=== PATIENT | female | born 1950 | race Caucasian/White ===

== ENCOUNTER 2017-05-20 10:46 | Inpatient (IN) ==
[2017-05-20 11:07] LABS: ABG Base Excess 2 mEq/L (-2 to 3); ABG HCO3 27 mEq/L (21-27); ABG Oxygen Saturation 96 % (95-98); ABG PCO2 40 mmHg (35-45); ABG PH 7.43 pH Units (7.32-7.45); ABG PO2 77 mmHg (85-104); ABG TCO2 28 mEq/L (20-26)
[2017-05-20 11:13] LABS: Basophils % 0.4 %; Hematocrit 27.1 % (35.3-44.9); Hemoglobin 8.5 g/dL (11.5-15.4); Immature Granulocytes % 0.7 % (0-4); Mean Corpuscular HGB Conc 31.4 g/dL (31.6-35.5); Mean Corpuscular Hemoglobin 24.7 pg (28.0-33.3); Mean Corpuscular Volume 78.8 fL (83.0-100.0); Monocytes % 15.2 %; Neutrophils # 4.7 K/mcL (1.6-8.9); Platelet Count 290 K/mcL (140-400); Red Blood Count 3.44 M/mcL (3.82-4.97); Segmented Neutrophils % 68.7 %
--- NOTE | 2017-05-20 11:38 | Emergency Department Note ---
Disposition Clinical Impression: Respiratory distress Disposition: Still a Patient Referrals: Grecia Glover FOOD ANALYST [Primary Care Provider] - General Adult HPI - General Chief complaint: ED Shortness of Breath/Dyspnea Stated complaint: resp distress Time Seen by Provider: 05/20/17 10:56 Source: patient, family, EMS Limitations: no limitations - History of Present Illness Pain Scale: 0 - Related Data Home Medications Medication Instructions Recorded Confirmed Aspirin 81 mg PO DAILY 10/01/14 10/01/14 Calcium 600 + D Tablet 600 mg PO BID 10/01/14 10/01/14 Duloxetine [Cymbalta] 60 mg PO DAILY 10/01/14 10/01/14 Levothyroxine [Synthroid] 112 mcg PO DAILY 10/01/14 10/01/14 Simvastatin [Zocor] 20 mg PO DAILY 10/01/14 10/01/14 Previous Rx's Medication Instructions Recorded Hydrocodone/Acetaminophen [[place] 1 tab PO Q6H PRN #7 tab NS 10/01/14 5-325 Tablet] Ibuprofen [Motrin] 800 mg PO Q8HR #30 tablet 10/01/14 Allergies Allergy/AdvReac Type Severity Reaction Status Date / Time docetaxel AdvReac Agitated Verified 11/30/15 13:46 Past Medical History - Past Medical History Medical history: Reports: cancer, hyperlipidemia, thyroid disease Surgical history: Reports: cholecystectomy, hysterectomy, thyroidectomy Psychiatric history: Reports: depression - Social History Smoking Status: Current every day smoker Smokeless Tobacco Status: No Alcohol use: Reports: none Drug use: Reports: none Physical Exam - General Limitations: no limitations General appearance: alert, anxious Course Vital Signs Temperature 98.1 F 05/20/17 10:47 Pulse Rate 116 05/20/17 10:47 Respiratory Rate 26 05/20/17 10:47 Blood Pressure 118/96 05/20/17 10:47 O2 Sat by Pulse Oximetry 89 05/20/17 10:47 Temperature 98.1 F 05/20/17 10:47 Pulse Rate 116 05/20/17 10:47 Respiratory Rate 23 05/20/17 10:50 Blood Pressure 118/96 05/20/17 10:47 O2 Sat by Pulse Oximetry 94 05/20/17 10:54 Oxygen Delivery Oxygen Delivery Bipap Medical Decision Making - Lab Data Result diagrams: 05/20/17 10:58 Lab Results 0405/20/17 05/20/17 Range/Units 10:58 10:58 11:02 WBC 6.8 (4.3-11.1) K/mcL RBC 3.44 L (3.82-4.97) M/mcL Hgb 8.5 L (11.5-15.4) g/dL Hct 27.1 L (35.3-44.9) % MCV 78.8 L (83.0-100.0) fL MCH 24.7 L (28.0-33.3) pg MCHC 31.4 L (31.6-35.5) g/dL RDW 17.0 H (11.5-14.5) % Plt Count 290 (140-400) K/mcL MPV 9.0 L (9.4-12.4) fL Immature Gran % 0.7 (0-4) % Seg Neutrophils % 68.7 % Lymphocytes % 15.0 % Monocytes % 15.2 % Eosinophils % 0.0 % Basophils % 0.4 % Neutrophils # 4.7 (1.6-8.9) K/mcL Lymphocytes # 1.0 (0.6-4.6) K/mcL Monocytes # 1.0 (0.0-1.3) K/mcL Eosinophils # 0.0 (0.0-0.6) K/mcL Basophils # 0.0 (0.0-0.2) K/mcL Sample Site R Radial ABG pH 7.43 (7.32-7.45) pH Units ABG pCO2 40 (35-45) mmHg ABG pO2 77 L (85-104) mmHg ABG HCO3 27 (21-27) mEq/L ABG Total CO2 28 H (20-26) mEq/L ABG O2 Saturation 96 (95-98) % ABG Base Excess 2 (-2 to 3) mEq/L Blas Test Positive O2 Delivery Device BiPAP Inspired O2 60.0 (1-15=lpm [id number]=%) Lactic Acid 0.8 (0.5-2.2) mmol/L Attestation Statement - Attestation Attestation: I examined this patient and my medical decision-making was reviewed with the Resident Physician. I agree with the documented findings, disposition and treatment plan as described except to the extent set forth below. 67 year old female in respirtaory distress and secondary to plueral effusion secondary to metastatic ovarian cancer. Patients MAULIK and katy at bedside states that she is going to be put on hospice tomorrow and her cancer care is at [facility]. Currently she is a full code. We will consult withou to hospice and then discuss plan of care with family. Emi will continue with cardiopulmonary workup
[2017-05-20 11:41] LABS: BUN/Creatinine Ratio 15 (6-26); Blood Urea Nitrogen 14 mg/dL (8-23); Calcium 8.8 mg/dL (8.6-10.3); Carbon Dioxide 26 mEq/L (23-29); Chloride 99 mEq/L (98-107); Glucose 135 mg/dL (70-105); Osmolality,Calculated 279 (280-300); Potassium 3.6 mEq/L (3.5-5.1); Sodium 133 mEq/L (136-145); Troponin I < 0.03 ng/mL (< 0.04); eGFR For African Americans > 60 (> 60); eGFR For Non-African Americans > 60 (> 60)
--- NOTE | 2017-05-20 12:35 | Emergency Department Note ---
Disposition Clinical Impression: Respiratory distress Pulmonary edema Qualifiers: Chronicity: chronic Qualified Code(s): J81.1 - Chronic pulmonary edema Primary cancer of ovary with widespread metastatic disease Qualifiers: Laterality: unspecified laterality Qualified Code(s): C56.9 - Malignant neoplasm of unspecified ovary; C80.0 - Disseminated malignant neoplasm, unspecified; C80.0 - Disseminated malignant neoplasm, unspecified; C80.0 - Disseminated malignant neoplasm, unspecified; C80.0 - Disseminated malignant neoplasm, unspecified Acute and chronic respiratory failure Qualifiers: Respiratory failure complication: unspecified whether with hypoxia or hypercapnia Qualified Code(s): J96.20 - Acute and chronic respiratory failure, unspecified whether with hypoxia or hypercapnia Disposition: Admitted As Inpatient Condition: Fair Referrals: Grecia Glover CNP [Primary Care Provider] - Forms: ED Satisfaction Letter Time of Disposition: 12:41 SOB HPI - General Chief Complaint: ED Shortness of Breath/Dyspnea Stated Complaint: resp distress Time Seen by Provider: 05/20/17 10:56 Source: patient, family, EMS Limitations: other (dyspneic) Nursing Notes Reviewed: Yes Vital Signs Reviewed: Yes - History of Present Illness Patient is a 67-year-old female who presents to [facility] ED with a chief complaint of difficulty breathing. Patient has a past medical history of metastatic ovarian cancer. Family states it has spread from her ovaries to her lungs and liver and peritoneal lining. Patient was previously being treated at the [facility]. Patient's last appointment was last in which they were told that any further efforts for treatment would be futile. They had referred her to hospitalist for which she was supposed to see them for the first time tomorrow. Her sister states that over the weekend, she has started to decline more and more. Her oxygen was 77% on 6 L when EMS arrived. When she arrived here, she was placed on BiPAP to help decrease her work of respirations. Patient is currently adamant to be DNI. However, her most recent CODE STATUS is full code. When the arrived, I discussed with him if they would like any further aggressive measures and he says no. Does not want any chest compressions or any further surgical interventions. At this time, her CODE STATUS is DNR CC. 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 Severity: moderate Consistency/Duration: gradually worsening Improves with: nothing Worsens with: nothing Treatment prior to arrival: oxygen - Related Data Home oxygen amount: 2 liters Home Medications Medication Instructions Recorded Confirmed Aspirin 81 mg PO DAILY 10/01/14 05/20/17 Duloxetine [Cymbalta] 60 mg PO DAILY 10/01/14 05/20/17 Simvastatin [Zocor] 20 mg PO DAILY 10/01/14 05/20/17 LORazepam [Ativan] 1 mg PO TID 05/20/17 05/20/17 Levothyroxine [Synthroid] 88 mcg PO DAILY 05/20/17 05/20/17 Multivitamin/Iron/Folic Acid 1 tab PO DAILY 05/20/17 05/20/17 [Cerovite Advanced Form Tab] Oxycodone HCl [Oxaydo] 5 mg PO Q6H PRN 05/20/17 05/20/17 Sulfamethoxazole/Trimeth DS 1 tab PO BID 05/20/17 05/20/17 [Bactrim DS] Allergies Allergy/AdvReac Type Severity Reaction Status Date / Time docetaxel AdvReac Agitated Verified 11/30/15 13:46 Limitations: ROS unobtainable due to patients medical condition Past Medical History - Past Medical History Attestation: Yes The following information was validated with the patient. Source: patient Medical history: Reports: cancer, hyperlipidemia, thyroid disease Surgical history: Reports: cholecystectomy, hysterectomy, thyroidectomy Psychiatric history: Reports: depression - Social History Smoking Status: Current every day smoker Smokeless Tobacco Status: No Alcohol use: Reports: none Drug use: Reports: none Physical Exam - General Limitations: no limitations General appearance: alert, anxious - Head Head exam: atraumatic, normocephalic, normal inspection - Eye Eye exam: Present: normal appearance, PERRL, EOMI - ENT ENT exam: normal exam, normal oropharynx, mucous membranes moist - Neck Neck exam: Present: normal inspection, full ROM, trachea midline - Chest Chest inspection: Present: normal inspection, symmetric chest wall rise - Respiratory Respiratory exam: Present: normal lung sounds bilaterally - Cardiovascular Cardiovascular exam: Present: normal rhythm, tachycardia - Abdominal Exam Abdominal exam: Present: soft, Non-Tender. Absent: tenderness, distention, guarding, rebound, rigidity - Extremities Exam Extremities exam: Present: normal inspection, full ROM. Absent: tenderness, pedal edema - Neurological Exam Neurological exam: Present: alert - Psychiatric Psychiatric exam: Present: normal affect, normal mood - Skin Skin exam: Present: warm, dry, intact, normal color Course Course Narrative: Patient seen and examined. Difficulty breathing with oxygen saturation 77%. Patient placed on BiPAP upon her arrival. Her oxygenation improved to 92% with good waveform. Lab work, EKG, chest x-ray ordered. We are waiting on the husbands arrival to make a decision on her CODE STATUS. - Reevaluation(s) Reevaluation #1: I discussed the patient with hospice care who stated they are unable to do any set up for home hospice due to it being Sunday. They are limited on the resources today. I discussed with palliative care nurse Leona who states they will consult on the patient to determine goals of care. Patient will be admitted to hospitalist service. I discussed with hospitalist Dr. Neff who states he would like to know normal official CODE STATUS before we can accept the patient. I discussed with the family members and the who has arrived to states that he would like no further life-saving invasive interventions. Decision to change her to a DNR CC. Time: 12:43 Vital Signs Temperature 98.1 F 05/20/17 10:47 Pulse Rate 116 05/20/17 10:47 Respiratory Rate 26 05/20/17 10:47 Blood Pressure 118/96 05/20/17 10:47 O2 Sat by Pulse Oximetry 89 05/20/17 10:47 Temperature 98.1 F 05/20/17 10:47 Pulse Rate 94 05/20/17 12:20 Respiratory Rate 20 05/20/17 12:20 Blood Pressure 108/71 05/20/17 12:20 O2 Sat by Pulse Oximetry 95 05/20/17 12:20 Oxygen Delivery Oxygen Delivery Bipap Shortness of Breath/Dyspnea - Medical Records Medical records reviewed: Yes I reviewed the patient's medical records. - Lab Data Lab results reviewed: Yes I reviewed the patient's lab results. Result diagrams: 05/20/17 10:58 05/20/17 10:58 Lab Results 05/20/17 05/20/17 05/20/17 Range/Units 10:58 10:58 10:58 WBC 6.8 (4.3-11.1) K/mcL RBC 3.44 L (3.82-4.97) M/mcL Hgb 8.5 L (11.5-15.4) g/dL Hct 27.1 L (35.3-44.9) % MCV 78.8 L (83.0-100.0) fL MCH 24.7 L (28.0-33.3) pg MCHC 31.4 L (31.6-35.5) g/dL RDW 17.0 H (11.5-14.5) % Plt Count 290 (140-400) K/mcL MPV 9.0 L (9.4-12.4) fL Immature Gran % 0.7 (0-4) % Seg Neutrophils % 68.7 % Lymphocytes % 15.0 % Monocytes % 15.2 % Eosinophils % 0.0 % Basophils % 0.4 % Neutrophils # 4.7 (1.6-8.9) K/mcL Lymphocytes # 1.0 (0.6-4.6) K/mcL Monocytes # 1.0 (0.0-1.3) K/mcL Eosinophils # 0.0 (0.0-0.6) K/mcL Basophils # 0.0 (0.0-0.2) K/mcL Sample Site ABG pH (7.32-7.45) pH Units ABG pCO2 (35-45) mmHg ABG pO2 (85-104) mmHg ABG HCO3 (21-27) mEq/L ABG Total CO2 (20-26) mEq/L ABG O2 Saturation (95-98) % ABG Base Excess (-2 to 3) mEq/L Blas Test O2 Delivery Device Inspired O2 (1-15=lpm [id number]=%) Sodium 133 L (136-145) mEq/L Potassium 3.6 (3.5-5.1) mEq/L Chloride 99 (98-107) mEq/L Carbon Dioxide 26 (23-29) mEq/L BUN 14 (8-23) mg/dL Creatinine 0.91 (0.60-1.20) mg/dL Est GFR ( Amer) > 60 (> 60) Est GFR (Non-Af Amer) > 60 (> 60) BUN/Creatinine Ratio 15 (6-26) Glucose 135 H (70-105) mg/dL Calculated Osmolality 279 L (280-300) Lactic Acid 0.8 (0.5-2.2) mmol/L Calcium 8.8 (8.6-10.3) mg/dL Troponin I < 0.03 (< 0.04) ng/mL B-Natriuretic Peptide (Less than 100) pg/mL 05/20/17 05/20/17 Range/Units 10:58 11:02 WBC (4.3-11.1) K/mcL RBC (3.82-4.97) M/mcL Hgb (11.5-15.4) g/dL Hct (35.3-44.9) % MCV (83.0-100.0) fL MCH (28.0-33.3) pg MCHC (31.6-35.5) g/dL RDW (11.5-14.5) % Plt Count (140-400) K/mcL MPV (9.4-12.4) fL Immature Gran % (0-4) % Seg Neutrophils % % Lymphocytes % % Monocytes % % Eosinophils % % Basophils % % Neutrophils # (1.6-8.9) K/mcL Lymphocytes # (0.6-4.6) K/mcL Monocytes # (0.0-1.3) K/mcL Eosinophils # (0.0-0.6) K/mcL Basophils # (0.0-0.2) K/mcL Sample Site R Radial ABG pH 7.43 (7.32-7.45) pH Units ABG pCO2 40 (35-45) mmHg ABG pO2 77 L (85-104) mmHg ABG HCO3 27 (21-27) mEq/L ABG Total CO2 28 H (20-26) mEq/L ABG O2 Saturation 96 (95-98) % ABG Base Excess 2 (-2 to 3) mEq/L Blas Test Positive O2 Delivery Device BiPAP Inspired O2 60.0 (1-15=lpm [id number]=%) Sodium (136-145) mEq/L Potassium (3.5-5.1) mEq/L Chloride (98-107) mEq/L Carbon Dioxide (23-29) mEq/L BUN (8-23) mg/dL Creatinine (0.60-1.20) mg/dL Est GFR ( Amer) (> 60) Est GFR (Non-Af Amer) (> 60) BUN/Creatinine Ratio (6-26) Glucose (70-105) mg/dL Calculated Osmolality (280-300) Lactic Acid (0.5-2.2) mmol/L Calcium (8.6-10.3) mg/dL Troponin I (< 0.04) ng/mL B-Natriuretic Peptide 47 (Less than 100) pg/mL - Radiology Data Radiology results reviewed: Yes I reviewed the patient's radiology results. Chest X-Ray 05/20/17 10:56 IMPRESSION: Pulmonary edema with bilateral pleural effusions. D/ / 05/20/2017 11:30:41 Mendez Kumar MD / [facility] Interpreting Provider: Mendez Kumar MD - EKG Data EKG attestation: Yes I reviewed and interpreted this EKG. EKG results narrative: EKG done at 1048 shows sinus tachycardia with a rate of [address] elevation or depression noted. Normal axis. Low voltage throughout. Wandering baseline, poor quality EKG.
[2017-05-20] MEDS ORDERED: MORPHINE SUL Oral CONC 10 MG/0.5 ML ORAL.SYG SL PRN (13:21)
[2017-05-20] MEDS ORDERED: Haloperidol Oral Conc 10 MG/5 ML UDC PO PRN (13:22)
[2017-05-20] MEDS ORDERED: Ondansetron ODT 4 MG TAB.RAPDIS SL PRN (13:25)
--- NOTE | 2017-05-20 13:28 | Palliative - Consult Note ---
Date of Encounter: 05/20/17 Time of Encounter: 13:30 - Assessment and Plan (1) Constipation Current Visit: Yes Status: Acute Assessment and plan: Dulcolax suppository daily and milk and molasses enema tonight if not effective. Add Senokot if able to take po. Monitor. Qualifiers: Qualified Code(s): K59.00 - Constipation, unspecified (2) Cancer associated pain Current Visit: Yes Status: Acute Assessment and plan: Continue Oxycodone as taken at home. Roxanol has been added for dyspnea-may assist with pain as well. Monitor. She was only utilizing about 15mg Oxycodone per day, but may need addition of Fentanyl patch and liquid for breakthrough if unable to take po. (3) Dyspnea Current Visit: Yes Status: Acute Assessment and plan: Add Roxanol for dyspnea, continue oxygen, and BIPAP PRN. FAmily to consider if they want to continue the bipap. Qualifiers: Dyspnea type: unspecified Qualified Code(s): R06.00 - Dyspnea, unspecified (4) Primary cancer of ovary with widespread metastatic disease Current Visit: Yes Status: Acute Qualifiers: Laterality: unspecified laterality Qualified Code(s): C56.9 - Malignant neoplasm of unspecified ovary; C80.0 - Disseminated malignant neoplasm, unspecified; C80.0 - Disseminated malignant neoplasm, unspecified; C80.0 - Disseminated malignant neoplasm, unspecified; C80.0 - Disseminated malignant neoplasm, unspecified (5) Acute and chronic respiratory failure Current Visit: Yes Status: Acute Qualifiers: Respiratory failure complication: unspecified whether with hypoxia or hypercapnia Qualified Code(s): J96.20 - Acute and chronic respiratory failure , unspecified whether with hypoxia or hypercapnia Palliative-CN HPI - Data of Consult Consult date: 05/20/17 Requesting Physician: Jovani Avila Primary Care Provider: Grecia Glover CNP - Consult Narrative History of present illness: Ms. Coleman is a 67 year old female with a history of metastatic ovarian cancer diagnosed 5 years ago, who presented with increasing shortness of breath that occurred over the last 24 hours. Patient's daughter at bedside states pt was seen at the [facility], [place] and had thoracentesis last Tues - drained 900ml. Patient had discussed at that time discontinuing chemotherapy as it appeared disease was progression and she was not tolerating most recent treatments. [facility] discussed that she also had large pleural effusion on the right , however, decided to do no further drainage, and treat shortness of breath with medications. Referral had been made to [facility], and they were to visit pt home on Sunday to discuss enrollment. When pt became distressed, they felt they had no choice this weekend other than to call squad. Patient lives with and daughter Richard and granddaughters live next door. She had never completed advanced directives, but in ED was able to make her wishes known that she wanted to be kept comfortable at this point, and did not want any resuscitated measures. Upon my visit in the ED, pt is resting quietly on bipap with daughter and granddaughters at the bedside. has went to eat. Patient lethargic and did not arouse much for me - does become restless with assessment, but would not open eyes or attempt to answer questions. Appeared in no current distress. Vitals stable and oxygen saturation currently 95%. Daughter states that patient has had good last 2 days at home and was eating well, however, went downhill quickly. States she also has not had a BM in 2 weeks. She was utilizing 2-3 Oxycodone/day at home for abd pain. CC: Jovani Avila Past Med Surg Social Fam HX - Past Medical History Medical history: cancer, hyperlipidemia, thyroid disease Psychiatric history: depression - Past Surgical History Surgical History: cholecystectomy, hysterectomy, thyroidectomy - Social History Smoking Status: Current every day smoker Smokeless Tobacco Status: No Alcohol use: none Drug use: none Medications and Allergies Aspirin 81 mg PO DAILY 10/01/14 [History] Duloxetine [Cymbalta] 60 mg PO DAILY 10/01/14 [History] Simvastatin [Zocor] 20 mg PO DAILY 10/01/14 [History] Calcium Carb/Vitamin D3/Vit K1 [Calcium + D Soft Chewable Tab] 1 tab PO DAILY [History] LORazepam [Ativan] 1 mg PO TID 05/20/17 [History] Levothyroxine [Synthroid] 88 mcg PO DAILY 05/20/17 [History] Multivitamin/Iron/Folic Acid [Cerovite Advanced Form Tab] 1 tab PO DAILY [History] Oxycodone HCl [Oxaydo] 5 mg PO Q6H PRN 05/20/17 [History] Sulfamethoxazole/Trimeth DS [Bactrim DS] 1 tab PO BID 05/20/17 [History] 3 Allergy/AdvReac Type Severity Reaction Status Date / Time docetaxel AdvReac Agitated Verified 11/30/15 13:46 ROS unobtainable: due to mental status Palliative Care-Exam - Constitutional Vitals: Temp Pulse Resp BP Pulse Ox 98.1 F 94 20 111/56 95 05/20/17 10:47 05/20/17 12:20 05/20/17 13:18 05/20/17 13:18 05/20/17 12:20 General appearance: Present: no acute distress - Head Head Exam: Present: normal inspection, normocephalic - Eye Eye exam: Present: normal appearance, PERRL - Respiratory Respiratory exam: Present: decreased breath sounds, CTAB Additional comments: Currently on bipap - Cardiovascular Cardiovascular exam: Present: +S1, +S2 - GI/Abdominal Exam GI/Abdominal exam: Present: distended, normal bowel sounds, soft - Extremities Exam Extremities exam: Present: normal capillary refill, normal inspection - Neurological Exam Additional comments: Lethargic after receiving sedative. Restless when awakened. Does not follow commands, but moves all extremities - Skin Skin exam: Present: dry, pallor, warm Internal Medicine - CN: Reslt - Labs CBC & Chem 7: 05/20/17 10:58 05/20/17 10:58 - ABG Interpretation ABG results: ABG ABG pH 7.43 pH Units (7.32-7.45) 05/20/17 11:02 ABG pCO2 40 mmHg (35-45) 05/20/17 11:02 ABG pO2 77 mmHg (85-104) L 05/20/17 11:02 ABG O2 Saturation 96 % (95-98) 05/20/17 11:02 Consult Discharge Plan - Plan Referrals: Grecia Glover CNP [Primary Care Provider] - Palliative Quality Palliative Quality: Screen for Code Status: Yes, Screen for Goals of Care: Yes, Screen for Pain: Yes, If Pain Regimen Started, Initiate Bowel Regimen: Yes, Screen for Nausea/Vomitting: Yes Code Status: 05/20/17 13:24 DNR [Resuscitation Status: Active] [RES] Routine Comment: Resuscitation Status: DNR-Comfort Care
[2017-05-20] MEDS ORDERED: NON-FORMULARY MEDICATION 1 EACH EACH (Oxycodone Hcl [Oxaydo] 5 MG) PO PRN (13:50)
[2017-05-20] MEDS ORDERED: Naloxone 0.4 MG/ML INJ IVP PRN (13:51)
--- NOTE | 2017-05-20 14:19 | Internal Med History&Physical ---
Date of Encounter: 05/20/17 Time of Encounter: 14:04 Internal Medicine - H&P: HPI Chief complaint: shortness of breath Admitted From: Emergency Dept Plans for Post Hospital Care: Hospice - Medical Facility History of present illness: Ms. 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 Patient was brought to this hospital emergency department for worsening shortness of breath. 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 Patient was following up at [facility] in [facility]. Patient underwent multiple rounds of thoracentesis. The last week patient was evaluated on at the [facility] and at that time patient/family members were told that it is extremely difficult for now to do this serial thoracentesis. Specialist from the [facility] recommended hospice evaluation. Hospice agency was called and they were supposed to evaluate patient on 05/21/2017 and enroll her for hospice. This morning patient was in a persistent shortness of breath and was gradually declining. Patient was unable to talk. This was the reason squad was called. Upon arrival of the squad it was noted that her oxygen saturation was 77%. Workup in the emergency room: Patient was evaluated in the emergency room. Patient was placed on BiPAP. Basic labs were drawn. Palliative care was called from emergency room for further evaluation. Reason for admission: Acute on chronic respiratory failure likely secondary to the worsening pleural effusion. The etiology of recurrent pleural effusion is underlying carcinoma of ovary. Past Med Surg Social Fam HX - Past Medical History Medical history: cancer, hyperlipidemia, thyroid disease Psychiatric history: depression - Past Surgical History Surgical History: cholecystectomy, hysterectomy, thyroidectomy - Social History Smoking Status: Current every day smoker Smokeless Tobacco Status: No Alcohol use: none Drug use: none Internal Medicine - H&P: Meds Aspirin 81 mg PO DAILY 10/01/14 [History] Duloxetine [Cymbalta] 60 mg PO DAILY 10/01/14 [History] Simvastatin [Zocor] 20 mg PO DAILY 10/01/14 [History] Calcium Carb/Vitamin D3/Vit K1 [Calcium + D Soft Chewable Tab] 1 tab PO DAILY [History] LORazepam [Ativan] 1 mg PO TID 05/20/17 [History] Levothyroxine [Synthroid] 88 mcg PO DAILY 05/20/17 [History] Multivitamin/Iron/Folic Acid [Cerovite Advanced Form Tab] 1 tab PO DAILY [History] Oxycodone HCl [Oxaydo] 5 mg PO Q6H PRN 05/20/17 [History] Sulfamethoxazole/Trimeth DS [Bactrim DS] 1 tab PO BID 05/20/17 [History] 3 Allergy/AdvReac Type Severity Reaction Status Date / Time docetaxel AdvReac Agitated Verified 11/30/15 13:46 ROS unobtainable: due to mental status All Systems PM: A 10-system review of systems was performed and is negative for pertinent findings except as documented above in the HPI. - Constitutional Vitals: Temp Pulse Resp BP Pulse Ox 97.8 F 100 17 115/81 95 05/20/17 13:39 05/20/17 13:39 05/20/17 13:39 05/20/17 13:39 05/20/17 12:20 General appearance: Present: cachectic, A&O X 2, mild distress, underweight - Head Head exam: Present: atraumatic, normocephalic - Eye Eye exam: Present: PERRL, conjuntiva pink, sclera anicteric Pupils: Present: PERRL - Neck Neck exam general surgery: Present: supple, trachea midline. Absent: lymphadenopathy - Respiratory Respiratory exam: Present: CTAB. Absent: accessory muscle use, rales, rhonchi, wheezes - Cardiovascular Cardiovascular exam: Present: RRR, +S1, +S2. Absent: diastolic murmur, gallop, rubs, systolic murmur - GI/Abdominal GI/Abdominal exam: Present: normal bowel sounds, soft, no peritoneal signs. Absent: distended, tenderness - Extremities Exam Extremities exam: Present: warm, radial pulses palpable and symmetrical. Absent : calf tenderness, cyanotic, pedal edema - Neurological Exam Neurological exam: Present: CN II-XII intact, oriented X3, no focal deficits. Absent: pronater drift, facial droop, speech deficit - Skin Skin exam: Present: dry, intact Internal Med - H&P Results - Labs CBC & Chem 7: 05/20/17 10:58 05/20/17 10:58 - Assessment and plan (1) Acute and chronic respiratory failure Current Visit: Yes Status: Acute Assessment and plan: Patient has a recurrent pleural effusion secondary to the underlying widespread metastatic ovarian cancer. Patient use to undergo for this recurrent thoracentesis is at [facility]. Last patient was told to follow up with the hospice by cancer specialist at [facility]. Hospice is supposed to see patient tomorrow morning that is on 05/21/2017. This morning patient's condition probably separate deteriorated and she was short of breath. This was the reason patient was brought to the emergency room for further evaluation. Plan: Admit as inpatient. Continue BiPAP. Pain management as per palliative care/hospice. Patient's CODE STATUS is DNR comfort care. We will make patient comfortable. Palliative care had a long discussion with the patient/family. I have seen this patient along with the palliative care nurse practitioner in the room 21 and emergency Department. Plan of care discussed with the patient's family. All questions answered. Qualifiers: Respiratory failure complication: unspecified whether with hypoxia or hypercapnia Qualified Code(s): J96.20 - Acute and chronic respiratory failure , unspecified whether with hypoxia or hypercapnia (2) Primary cancer of ovary with widespread metastatic disease Current Visit: Yes Status: Acute Assessment and plan: Patient does have a metastatic widespread ovarian cancer. This was diagnosed 5 years back. At this point, has been recommended hospice evaluation/hospice treatment by patient's cancer specialist from [facility] [place], [place]. We have palliative care/hospice on the board. We will follow the recommendations. Qualifiers: Laterality: unspecified laterality Qualified Code(s): C56.9 - Malignant neoplasm of unspecified ovary; C80.0 - Disseminated malignant neoplasm, unspecified; C80.0 - Disseminated malignant neoplasm, unspecified; C80.0 - Disseminated malignant neoplasm, unspecified; C80.0 - Disseminated malignant neoplasm, unspecified (3) Cancer associated pain Current Visit: Yes Status: Acute Assessment and plan: Patient definitely has a concern associated pain. At this point we will continue to follow the recommendations from palliative care/hospice team. Close monitoring of the patient as far as pain is concerned. (4) Constipation Current Visit: Yes Status: Acute Assessment and plan: Possibility of a constipation etiology is likely opioid induced. Patient is on appropriate medication at this point. We will continue to monitor patient. Qualifiers: Constipation type: unspecified constipation type Qualified Code(s): K59.00 - Constipation, unspecified (5) DVT prophylaxis Current Visit: Yes Status: Acute Assessment and plan: SCD Medical decision making: This patient has a grave prognosis in spite of being on appropriate care due to the underlying terminal metastatic cancer. - Time Spent With Patient Total time spent is greater than 50% in coordination of care (as documented) at patient's floor/unit and/or counseling patient:
[2017-05-20] MEDS: *HR* Heparin 5,000 UNIT/ML VIAL SQ SCH ×2 (15:54→23:35)
[2017-05-20] MEDS: Bisacodyl 10 MG RECTAL SUPPOSITORY RC SCH (15:54)
[2017-05-20] MEDS ORDERED: Milk and Molasses Enema 200 ML RC ONE (20:00)
[2017-05-20] MEDS: *HR* OxyCODONE Immed Rel 5 MG TABLET PO PRN (22:01)
[2017-05-20] MEDS: Sennosides/Docusate Sodium TABLET PO SCH (22:01)
[2017-05-21] MEDS ORDERED: VITAMIN D3 PO SCH (09:00)
[2017-05-21] MEDS ORDERED: Cholecalciferol (D-3) 1,000 UNIT TABLET PO SCH (09:00)
[2017-05-21] MEDS ORDERED: CALCIUM CARB PO SCH (09:00)
[2017-05-21] MEDS ORDERED: VIT K1 PO SCH (09:00)
[2017-05-21] MEDS ORDERED: Aspirin 81 MG TAB.CHEW PO SCH (09:00)
[2017-05-21] MEDS: Sennosides/Docusate Sodium TABLET PO SCH (09:57)
[2017-05-21] MEDS: *HR* Heparin 5,000 UNIT/ML VIAL SQ SCH ×2 (09:57→16:20)
--- NOTE | 2017-05-21 10:23 | Palliative Progress Note ---
Date of Encounter: 05/21/17 Time of Encounter: 09:00 - Assessment and plan (1) Nausea & vomiting Current Visit: Yes Status: Acute Assessment and plan: Patient reports had 1 episode of vomitting this am. Zofran improved, had 1 dose in last 24 hours. Ordered Zofran ODT for patient's discharge. (2) Restlessness and agitation Current Visit: Yes Status: Acute Assessment and plan: Patient reports agitation/restlessness improved. Zero doses of Haldol in last 24 hours. Ordered Haldol for discharge PRN. (3) Goals of care, counseling/discussion Current Visit: Yes Status: Acute Assessment and plan: Family at bedside during assessment, agree patient wishes to go home with [facility]. After completing assessment, spoke with attending Dr. Che regarding discharge planning. Dr. Che reports patient admitted for palliative type symptom management and since her symptoms are from a terminal illness that she will never be medically cleared; however, feels she is ok to be discharged home with hospice, since that is the patient's wishes. Reported to patient's family and patient that [facility] has been notified of her pending discharge. Requested hospital bed, air mattress, oxygen, over the bed table, and bedside commode. Spoke with Dinorah at [facility] for patient to be admitted while in hospital and be transported home via ambulance for additional comfort. Ordered prescriptions (Dulcolax, Morphine Sulfate, Zofran, Roxicodone, Senna Plus, and Haldol) and faxed to pharmacy. Will call [facility] once discharge order is placed by Dr. Che. (4) Respiratory distress Current Visit: Yes Status: Acute Assessment and plan: Patient breathing not labored during time of assessment. Denies dyspnea. Ordered Morphine Sulfate for discharge. Also reported to [facility] patient is currently using 13L NC. (5) Primary cancer of ovary with widespread metastatic disease Current Visit: Yes Status: Acute Qualifiers: Laterality: unspecified laterality Qualified Code(s): C56.9 - Malignant neoplasm of unspecified ovary; C80.0 - Disseminated malignant neoplasm, unspecified; C80.0 - Disseminated malignant neoplasm, unspecified; C80.0 - Disseminated malignant neoplasm, unspecified; C80.0 - Disseminated malignant neoplasm, unspecified (6) Dyspnea Current Visit: Yes Status: Acute Qualifiers: Dyspnea type: unspecified Qualified Code(s): R06.00 - Dyspnea, unspecified (7) Cancer associated pain Current Visit: Yes Status: Acute Assessment and plan: Patient reports pain under control at time of assessment. Ordered Morphine Sulfate and Roxicodone for discharge. (8) Constipation Current Visit: Yes Status: Acute Assessment and plan: Patient reports has had 1 bowel movement. Continued Senna Plus and Dulcolax for discharge. Qualifiers: Constipation type: unspecified constipation type Qualified Code(s): K59.00 - Constipation, unspecified - Time Spent With Patient Total time spent is greater than 50% in coordination of care (as documented) at patient's floor/unit and/or counseling patient: - Subjective Interval history: Upon arrival to room, patient resting quietly with eyes closed. Patient's 3 family members at bedside. Patient easily awakes with verbal stimulation. Reports pain to be under control with pain being rated as a dull 3/10; reports pain medication is helping control pain at this time. Patient has taken 1 dose of Roxicodone and 1 dose of Roxanol in last 24 hours. Questioned about dyspnea , reports much improved and not an issue at this time; patient on 13L via NC. Educated patient that Roxanol can also be utilized to help with dyspnea. Denies nausea at this time; however, reports did have vomitting episode this am; Zofran times 1 dose in last 24 hours, has helped control nausea at this time. Reports has had a bowel movement and Senna with Dulcolax given as ordered is helping. Denies restlessness being an issue, no doses of Haldol administered in last 24 hours. No further complaints during time of assessment. - Constitutional Vitals: Abnormal lab results RBC 3.44 M/mcL (3.82-4.97) L 05/20/17 10:58 Hgb 8.5 g/dL (11.5-15.4) L 05/20/17 10:58 Hct 27.1 % (35.3-44.9) L 05/20/17 10:58 MCV 78.8 fL (83.0-100.0) L 05/20/17 10:58 MCH 24.7 pg (28.0-33.3) L 05/20/17 10:58 MCHC 31.4 g/dL (31.6-35.5) L 05/20/17 10:58 RDW 17.0 % (11.5-14.5) H 05/20/17 10:58 MPV 9.0 fL (9.4-12.4) L 05/20/17 10:58 ABG pO2 77 mmHg (85-104) L 05/20/17 11:02 ABG Total CO2 28 mEq/L (20-26) H 05/20/17 11:02 Sodium 133 mEq/L (136-145) L 05/20/17 10:58 Glucose 135 mg/dL (70-105) H 05/20/17 10:58 POC Glucose 137 mg/dL (70-99) H 05/20/17 10:54 Calculated Osmolality 279 (280-300) L 05/20/17 10:58 General appearance: Present: cooperative, no acute distress - Head Head exam: Present: atraumatic, normal inspection - Expanded Head Exam Head exam: Absent: general tenderness - Eye Eye exam: Present: normal appearance, PERRL. Absent: nystagmus, periorbital swelling, periorbital tenderness Pupils: Present: normal accommodation, PERRL - ENT ENT exam: Present: mucous membranes moist, normal external ear exam, normal oropharynx - Neck Neck exam: Present: full ROM, normal inspection. Absent: lymphadenopathy, tenderness - Respiratory Respiratory exam: Present: CTAB - Cardiovascular Cardiovascular exam: Present: +S1, +S2. Absent: irregular rhythm - Expanded Cardiovascular Exam Peripheral pulses: 2+: Radial (L), Radial (R), Dorsalis Pedis (L) PM, Dorsalis Pedis (R) PM - GI/Abdominal GI/Abdominal exam: Present: hyperactive bowel sounds, soft. Absent: guarding, tenderness - Rectal Rectal exam: Present: deferred - Expanded Exam Female exam: Present: deferred - Extremities Exam Extremities exam: Present: normal capillary refill, normal inspection. Absent: pedal edema - Neurological Exam Neurological exam: Present: alert, oriented X3. Absent: facial droop, speech deficit - Psychiatric Psychiatric exam: Present: normal affect, normal mood. Absent: agitated, anxious - Skin Skin exam: Present: normal color Palliative Quality Palliative Quality: Screen for Code Status: Yes, Screen for Goals of Care: Yes, Screen for Pain: Yes, If Pain Regimen Started, Initiate Bowel Regimen: Yes, Screen for Nausea/Vomitting: Yes Code Status: 05/20/17 13:24 DNR [Resuscitation Status: Active] [RES] Routine Comment: Resuscitation Status: DNR-Comfort Care - Labs CBC & Chem 7: 05/20/17 10:58 05/20/17 10:58 - ABG Interpretation ABG results: ABG ABG pH 7.43 pH Units (7.32-7.45) 05/20/17 11:02 ABG pCO2 40 mmHg (35-45) 05/20/17 11:02 ABG pO2 77 mmHg (85-104) L 05/20/17 11:02 ABG O2 Saturation 96 % (95-98) 05/20/17 11:02 Consult Discharge Plan - Plan Referrals: Grecia Glover CNP [Primary Care Provider] - Prescriptions: Ondansetron ODT [Zofran ODT] 4 mg SL Q6HR PRN #16 tab.rapdis PRN Reason: nausea/vomitting OxyCODONE Immed Rel [Roxicodone 5 MG] 5 mg PO Q6HR PRN 4 Days #16 tablet PRN Reason: Pain Bisacodyl [Dulcolax] 10 mg RC DAILY 4 Days #4 supp.rect Haloperidol [Haldol] 1 mg PO Q6H PRN #16 tablet PRN Reason: agitation/anxiety/Restlessness MORPHINE SUL Oral CONC [Roxanol Oral Conc] 10 mg PO Q2H PRN 4 Days #30 ml PRN Reason: pain/dyspnea Sennosides/Docusate Sodium [Senna Plus] 2 each PO BID #16 tablet
--- NOTE | 2017-05-21 10:53 | Discharge Summary ---
- NOTES TO OUTPATIENT PROVIDER Notes to Outpatient Provider: F/u with Hospice Date of Encounter: 05/21/17 Time of Encounter: 10:30 - Discharge Diagnosis (1) Acute and chronic respiratory failure Priority: Primary Status: Acute Qualifiers: Respiratory failure complication: unspecified whether with hypoxia or hypercapnia Qualified Code(s): J96.20 - Acute and chronic respiratory failure , unspecified whether with hypoxia or hypercapnia (2) Primary cancer of ovary with widespread metastatic disease Priority: Secondary Status: Acute Qualifiers: Laterality: unspecified laterality Qualified Code(s): C56.9 - Malignant neoplasm of unspecified ovary; C80.0 - Disseminated malignant neoplasm, unspecified; C80.0 - Disseminated malignant neoplasm, unspecified; C80.0 - Disseminated malignant neoplasm, unspecified; C80.0 - Disseminated malignant neoplasm, unspecified (3) Cancer associated pain Priority: Secondary Status: Acute (4) Constipation Priority: Secondary Status: Acute Qualifiers: Constipation type: unspecified constipation type Qualified Code(s): K59.00 - Constipation, unspecified (5) DVT prophylaxis Priority: Secondary Status: Acute Hospital course: Ms. Coleman is a 67 year old female patient with history of metastatic ovarian cancer, bilateral pleural effusions with history of multiple thoracentesis was hospitalized here with worsening shortness of breath. She was being transitioned to hospice following her recent discharge from [facility]. She had come to the emergency room before she was admitted to hospice. She has since been stabilized medically with O2 supplementation. She is feeling much better now. She wishes to go home on hospice. Palliative care was consulted and are making arrangements for this. From my standpoint, patient can be discharged at this time. Discharge discussed with: patient, family - Time Spent with Patient Total time spent providing and/or coordinating discharge services: Less than 30 minutes (25 min) - Discharge Medications Prescriptions: Ondansetron ODT [Zofran ODT] 4 mg SL Q6HR PRN #16 tab.rapdis PRN Reason: nausea/vomitting OxyCODONE Immed Rel [Roxicodone 5 MG] 5 mg PO Q6HR PRN 4 Days #16 tablet PRN Reason: Pain Bisacodyl [Dulcolax] 10 mg RC DAILY 4 Days #4 supp.rect Haloperidol [Haldol] 1 mg PO Q6H PRN #16 tablet PRN Reason: agitation/anxiety/Restlessness LORazepam [Ativan] 1 mg PO TID 5 Days #14 tablet MORPHINE SUL Oral CONC [Roxanol Oral Conc] 10 mg PO Q2H PRN 4 Days #30 ml PRN Reason: pain/dyspnea Sennosides/Docusate Sodium [Senna Plus] 2 each PO BID #16 tablet Home Medications: Aspirin 81 mg PO DAILY 10/01/14 [History] Duloxetine [Cymbalta] 60 mg PO DAILY 10/01/14 [History] Simvastatin [Zocor] 20 mg PO DAILY 10/01/14 [History] Calcium Carb/Vitamin D3/Vit K1 [Calcium + D Soft Chewable Tab] 1 tab PO DAILY [History] Levothyroxine [Synthroid] 88 mcg PO DAILY 05/20/17 [History] Multivitamin/Iron/Folic Acid [Cerovite Advanced Form Tab] 1 tab PO DAILY [History] Sulfamethoxazole/Trimeth DS [Bactrim Ds] 1 tab PO BID 05/20/17 [History] Bisacodyl [Dulcolax] 10 mg RC DAILY 4 Days #4 supp.rect 05/21/17 [Rx] Haloperidol [Haldol] 1 mg PO Q6H PRN #16 tablet 05/21/17 [Rx] LORazepam [Ativan] 1 mg PO TID 5 Days #14 tablet 05/21/17 [Rx] MORPHINE SUL Oral CONC [Roxanol Oral Conc] 10 mg PO Q2H PRN 4 Days #30 ml [Rx] Ondansetron ODT [Zofran ODT] 4 mg SL Q6HR PRN #16 tab.rapdis 05/21/17 [Rx] OxyCODONE Immed Rel [Roxicodone 5 MG] 5 mg PO Q6HR PRN 4 Days #16 tablet [Rx] Sennosides/Docusate Sodium [Senna Plus] 2 each PO BID #16 tablet 05/21/17 [Rx] Allergies/Adverse Reactions: 3 Allergy/AdvReac Type Severity Reaction Status Date / Time docetaxel AdvReac Agitated Verified 11/30/15 13:46 Date of admission: 05/20/17 12:36 Primary care physician: Grecia Glover CNP Consults: 05/20/17 12:24 Consult to Palliative Care [CONS] Stat Comment: Consulting Provider: Palliative Care Kaylin Reason for Consult: code status Time Notified: 12:25 Call Completed: Yes Discharging clinician: Maria Elena Che Anticipated date of discharge: 05/21/17 - Constitutional Vitals: Temp Pulse Resp BP Pulse Ox 98.7 F 102 18 127/81 90 05/21/17 05:42 05/21/17 05:42 05/21/17 05:42 05/21/17 05:42 05/21/17 05:42 General appearance: Present: cachectic, cooperative, A&O X 2, underweight, answers questions appropriately - Neck Neck exam general surgery: Present: supple, trachea midline. Absent: lymphadenopathy - Respiratory Respiratory exam: Present: decreased breath sounds (at both bases). Absent: accessory muscle use, rales, rhonchi, wheezes - Cardiovascular Cardiovascular exam: Present: RRR, +S1, +S2. Absent: diastolic murmur, gallop, rubs, systolic murmur - Extremities Exam Extremities exam: Present: warm, radial pulses palpable and symmetrical. Absent : calf tenderness, cyanotic, pedal edema - Neurological Exam Neurological exam: Present: alert, oriented X3, no focal deficits. Absent: facial droop, speech deficit - Skin Skin exam: Present: dry, intact - Patient Status Disposition: Hospice - Home Condition: Fair Functional capacity at discharge: wheelchair bound Overall status at discharge: patient is progressing back to baseline - Discharge Instructions Instructions: Acute Respiratory Distress Syndrome (DC) Follow Up With: Grecia Glover CNP [Primary Care Provider] - (in 1-2 weeks) - Diet and Activity Activity: wear oxygen at all times Diet: advance to your usual diet
--- NOTE | 2017-05-21 10:57 | Physician Discharge Referral ---
Home Health/Hosp Referral Info Transfer to: Hospice Provider in Charge Post Discharge: Vice President Of Recruiting - Diagnosis (1) Acute and chronic respiratory failure Priority: Primary Status: Acute (2) Primary cancer of ovary with widespread metastatic disease Priority: Secondary Status: Acute (3) Cancer associated pain Priority: Secondary Status: Acute (4) Constipation Priority: Secondary Status: Acute (5) DVT prophylaxis Priority: Secondary Status: Acute - Respiratory Orders Oxygen / L per min (for comfort) Smoking Cessation: Smoking cessation has been advised. For more information, call the [place] Tobacco Quit Line at 5-741-MHMD-NOW. - Diet/Nutrition Diet/Nutrition Orders: Regular (as tolerated) - Activity Activity Orders: Chair - Services Needed Following services are medically necessary services: Nursing, Home Health Aide, Med Social Work - Transfer Medications Prescriptions: Ondansetron ODT [Zofran ODT] 4 mg SL Q6HR PRN #16 tab.rapdis PRN Reason: nausea/vomitting OxyCODONE Immed Rel [Roxicodone 5 MG] 5 mg PO Q6HR PRN 4 Days #16 tablet PRN Reason: Pain Bisacodyl [Dulcolax] 10 mg RC DAILY 4 Days #4 supp.rect Haloperidol [Haldol] 1 mg PO Q6H PRN #16 tablet PRN Reason: agitation/anxiety/Restlessness LORazepam [Ativan] 1 mg PO TID 5 Days #14 tablet MORPHINE SUL Oral CONC [Roxanol Oral Conc] 10 mg PO Q2H PRN 4 Days #30 ml PRN Reason: pain/dyspnea Sennosides/Docusate Sodium [Senna Plus] 2 each PO BID #16 tablet Home Medications: Aspirin 81 mg PO DAILY 10/01/14 [History] Duloxetine [Cymbalta] 60 mg PO DAILY 10/01/14 [History] Simvastatin [Zocor] 20 mg PO DAILY 10/01/14 [History] Calcium Carb/Vitamin D3/Vit K1 [Calcium + D Soft Chewable Tab] 1 tab PO DAILY [History] Levothyroxine [Synthroid] 88 mcg PO DAILY 05/20/17 [History] Multivitamin/Iron/Folic Acid [Cerovite Advanced Form Tab] 1 tab PO DAILY [History] Sulfamethoxazole/Trimeth DS [Bactrim Ds] 1 tab PO BID 05/20/17 [History] Bisacodyl [Dulcolax] 10 mg RC DAILY 4 Days #4 supp.rect 05/21/17 [Rx] Haloperidol [Haldol] 1 mg PO Q6H PRN #16 tablet 05/21/17 [Rx] LORazepam [Ativan] 1 mg PO TID 5 Days #14 tablet 05/21/17 [Rx] MORPHINE SUL Oral CONC [Roxanol Oral Conc] 10 mg PO Q2H PRN 4 Days #30 ml [Rx] Ondansetron ODT [Zofran ODT] 4 mg SL Q6HR PRN #16 tab.rapdis 05/21/17 [Rx] OxyCODONE Immed Rel [Roxicodone 5 MG] 5 mg PO Q6HR PRN 4 Days #16 tablet [Rx] Sennosides/Docusate Sodium [Senna Plus] 2 each PO BID #16 tablet 05/21/17 [Rx] Allergies/Adverse Reactions: 3 Allergy/AdvReac Type Severity Reaction Status Date / Time docetaxel AdvReac Agitated Verified 11/30/15 13:46 Certification: Further, I certify that my clinical findings support that this patient is homebound (i.e. absences from home require considerable and taxing effort and are for medical reasons or restorationist services or infrequently or short duration when for other reasons) because: Homebound Reason: Patient requires assistance of a person or device to safely leave home, Severity of cardiac or pulmonary status limits activity tolerance Attestation: My signature below is to certify that this patient is under my care and that I, or nurse practitioner, or a physician's pediatric physical therapy assistant working with me, has a face-to -face encounter with this patient.
[2017-05-21] MEDS: Bisacodyl 10 MG RECTAL SUPPOSITORY RC SCH (11:26)
[2017-05-21 11:50] VITALS: BP 119/85
[2017-05-21] MEDS: *HR* OxyCODONE Immed Rel 5 MG TABLET PO PRN (14:56)
[2017-05-21] MEDS ORDERED: Bisacodyl 10 MG RECTAL SUPPOSITORY RC SCH (16:00)
--- NOTE | 2017-05-22 10:06 | Event Note ---
Date of Encounter: 05/22/17 Time of Encounter: 10:04 Hospice medical technician assistant certification of terminal illness: Hospice benefit. Start: 05/21/17 Hospice benefit. In: +90 days Palliative performance scale: 30% History: The patient has cancer of the ovaries with widespread metastasis. He also has a history of acute on chronic respiratory failure and dyspnea. To the fact the patient has no further options with regard to the metastatic ovarian cancer and respiratory failure and does not wish to have any further aggressive care I believe that These findings support a life expectancy of 6 months or less. I attest that I have compose the above narrative based on my review of the patient's medical records, and or on my examination of the patient. Enmanuel Luna M.D. Associate medical reception specialist. [facility]
--- NOTE | 2017-05-25 11:56 | Electrocardiograph Report ---
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
== END 2017-05-21 18:30 | disposition hospice, home (50) | DRG 754 ==
LOC: EMEROO 10:46 → 2ANU 12:36 → SUATTDRO 12:36 → 2ANU 13:20
PROVIDERS: ADMIT Internal Medicine; ATTEND Internal Medicine